=== PATIENT | male | born 1985 | race African-American/Black ===

== ENCOUNTER 2020-02-07 21:00 | Emergency (ER) | payer MEDICAID ==
[~2020-02-07] VITALS: Ht 172.7 cm; Wt 97.0 kg
[2020-02-07] MEDS ORDERED: ACETAMINOPHEN 325MG TABLET PO ONE (22:45)
[2020-02-07] MEDS ORDERED: AMOXICILLIN/POTASSIUM CLAVULANATE 875/125MG TAB PO ONE (23:45)
== END 2020-02-08 00:05 | disposition home or self-care (01) ==
LOC: ER 21:00
DX: F60.0 Paranoid personality disorder (principal); R68.84 Jaw pain; F15.10 Other stimulant abuse, uncomplicated; F31.9 Bipolar disorder, unspecified; Z88.6 Allergy status to analgesic agent
CPT/HCPCS: 93005; 99283